=== PATIENT | female | born 2000 | race Two or more races ===

== ENCOUNTER 2022-03-07 05:18 | Inpatient (IN) | payer OTHER ==
[~2022-03-07] VITALS: Ht 165.1 cm; Wt 66.2 kg
[2022-03-07] MEDS ORDERED: PRENATAL TABLE1 EAC1 PO (05:29)
[2022-03-07] MEDS ORDERED: IRON325 MG PO (05:29)
[2022-03-07] MEDS ORDERED: SINGULAIR4 MG PO (05:30)
[2022-03-07] MEDS ORDERED: FOLIC ACID20 MG PO (05:30)
== END 2022-03-09 17:34 | disposition home or self-care (01) | DRG 807 ==
LOC: OB/GYN 05:18 → LDR 05:18 → EDBD 05:18 → OB/GYN 15:18
PROVIDERS: ADMIT Obstetrics & Gynecology; ATTEND Obstetrics & Gynecology
PROC: 10E0XZZ Delivery of Products of Conception, External Approach (ICD-10-PCS; principal; 2022-03-07)
PROC: 0W8NXZZ Division of Female Perineum, External Approach (ICD-10-PCS; 2022-03-07)
PROC: 3E033VJ Introduction of Other Hormone into Peripheral Vein, Percutaneous Approach (ICD-10-PCS; 2022-03-07)
DX: O13.4 Gestational [pregnancy-induced] hypertension without significant proteinuria, complicating childbirth (principal); Z37.0 Single live birth; Z3A.37 37 weeks gestation of pregnancy; Z20.822 Contact with and (suspected) exposure to COVID-19